=== PATIENT | female | born 1980 ===

== ENCOUNTER → 2024-06-22 06:19 | Day surgery (SDC) | payer BC, SELFPAY | LOC: GI 06:19 | PROVIDERS: ATTENDING PHYSICIAN Internal Medicine Gastroenterology | DX: Z12.11 Encounter for screening for malignant neoplasm of colon (principal); K64.8 Other hemorrhoids; Q43.8 Other specified congenital malformations of intestine; Z83.719 Family history of colon polyps, unspecified | CPT/HCPCS: G0105 ==